=== PATIENT | male | born 1955 | race Caucasian/White ===

== ENCOUNTER 2025-07-23 07:23 | Outpatient (AMB) | payer MEDICARE, SELFPAY ==
--- NOTE | 2025-07-23 07:26 | A.OFFVIS_ITS ---
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 He used to have intermittent head tremors for atleast 15-20 years.He started noticing episodic left hand tremors in his left hand and now phong hands for atleast 1 year.The tremors are with action like writing or holding a tool .He has no no head tremors when he is focusing on something - like working in a computer or when he is upset.No family h/o tremors. He is not sure alcohol helps. He has had 1 concussion -25 years ago. No change in voice No depression or anxiety No difficulty using utensils , personal hygiene , shower. Gait- ok . He has chronic back pain with numbness and is scheduled for decompression surgery in Aug 2025 ( next month) SLeep- loud snoring, gasping arousals. No active dreams. [facility] Medical History (Updated 07/23/25 @ 14:17 by Kristen Celis MD) Hypersomnia Snoring Coarse tremors Acute postoperative pain of right shoulder Chronic right-sided back pain Hearing loss HTN (hypertension) Diverticulosis Abnormal colonoscopy Chronic neck pain High cholesterol Family History Father Heart attack Heart disease Mother Colon cancer Sciatica Daughter Crohn disease Social History Alcohol intake: former Patient Tobacco Use Status: Never used Tobacco Physical Exam Vital Signs: Last Vital Signs Pulse 74 07/23/25 07:30 BP 124/76 07/23/25 07:30 Pulse Ox 97 07/23/25 07:30 Oxygen Delivery Method Room Air 07/23/25 07:30 BMI result Body Mass Index 30.8 Const General: cooperative, healthy appearing, comfortable and no acute distress Nutritional Appearance: overweight Orientation/consciousness: patient oriented x3 Eyes Pupils: Equal, round and reactive pupils present Neuro Other: retrognathia Mallampatti grade 4 No no head tremors Phong mild postural tremors Hand writing- mild tremors , ? writers cramp mild left leg tremors General: patient oriented x3, gait normal, tone normal, moves all extremities and no focal motor deficits Cranial nerves: Yes Facial sensation intact/muscles of mastication intact, Yes Equal, round and reactive pupils present, Yes Bilaterally intact EOM present, Yes Nystagmus not present, Yes Normal facial strength present, Yes Midline tongue present and Yes Ability to bilaterally elevate shoulders present Cognition (Neuro): normal cognition Gait exam (Neuro): Normal gait present Motor exam (neuro): 5/5 motor strength present throughout and Normal motor muscle tone present throughout Deep tendon reflexes (DTR's): Right triceps reflex intensity grade: 1+, Left triceps reflex intensity grade: 1+, Rt Biceps (C5, C6): 1+, Left biceps reflex intensity grade: 1+, Right brachioradialis reflex intensity grade: 1+, Left brachioradialis reflex intensity grade: 1+, Right patellar reflex intensity grade: 1+ and Left patellar reflex intensity grade: 1+ Coordination: noxini-se-llkg test normal Assessment & Plan Assessment & Plan (1) Coarse tremors: Comment: ? essential tremors Code(s): G25.2 - Other specified forms of tremor Category: Medical (2) Snoring: Code(s): R06.83 - Snoring Category: Medical (3) Hypersomnia: Code(s): G47.10 - Hypersomnia, unspecified Category: Medical Plan OT to help with hand functioning will consider gabapentin or propranolol if tina tremors affect his ADLs Home sleep test to r/o sleep apnea. Orders: Orders OT Evaluation and Treatment Today G25.2 - Other specified forms of tremor RT home sleep study Today G47.10 - Hypersomnia, unspecified, R06.83 - Snoring Coding Level of Care Code New Pt Level 4 (30124) Complex EM visit Add On G2211 Diagnoses Coarse tremors G25.2 Snoring R06.83 Hypersomnia G47.10
[2025-07-23 07:30] VITALS: BP 124/76; PULSE 74; O2SAT 97; BMI 30.8
--- OUTSIDE RECORDS SUMMARY | 2025-07-23 15:04 | XMS_ITS | Data Portability ---
Author Organization [place] - [facility], Allergy Address [address] [place] [address] Assessment No assessment recorded. Plan of Treatment Reminders Order Date Submit Date Provider Last Modified By Organization Details Last Modified Time Details Appointments Establish ed 30 2025 10:00A M TJ Nielsen MD Not available Not available Not available Lab None recorded. Referral None recorded. Procedures None recorded. Surgeries None recorded. Imaging None recorded. Medication Orders None recorded. Patient TargetsNo targets recorded. Patient InstructionsNo instructions recorded. Reason for Referral None Reported. Results Created Date Observation Date Name Description Value Unit Range Abnormal Flag Note LastModifiedBy Organization Detail LastModifiedTime 05/27/20 25 audio gram No observ ation record ed. BARCODE Not Available 2024 15:18:35 Result Notes None recorded. Problems Name Problem SNOMED Code Status Onset Date Resolution Date Notes Provider Name and Address Organization Details Recorded Time Impacted cerumen of bilateral ears 9736801877326 108 Active 2024 TJ Nielsen MD [address] [place] [address], [place], [address], [facility] - [facility] 14:31:06 Sensorineur al hearing loss of bilateral ears 087174488 Active 2024 TJ Nielsen MD [address] [place] [address], [place], [address], [facility] 14:31:13 Bilateral tinnitus 0562676901150 Active 2024 TJ Nielsen MD [address] [place] [address], [place], [address], [place] - [facility] 14:31:20 Problem Notes None recorded. Procedures Surgical History Date Name Laterality Status Provider Name and Address Organization Details Recorded Time Comp Audio with Tymps - 56740 & 13071 completed SONAM VILLA 100 [facility],[address], [address], [place] - [facility] 05/27/2025 14:46:27 Cerumen removal with microscope bilateral completed TJ MAYER MD [address], [address], [facility] - [facility] 05/27/2025 14:31:31 Imaging Results None recorded. Procedure Notes None recorded. Medical Equipment None Reported. Medications Name Sig Start Date Stop Date Status Note LastModified by Organization Details LastModified Time atorvastatin 80 mg tablet TAKE 1 TABLET BY MOUTH EVERY DAY active Not Available Not Available No t Available tamsulosin 0.4 mg capsule TAKE 1 CAPSULE BY MOUTH EVERYDAY AT BEDTIME active Not Available Not Available No t Available amlodipine 10 mg tablet TAKE 1 TABLET BY MOUTH EVERY DAY active Not Available Not Available No t Available methylpredniso lone 4 mg tablets in a dose pack TAKE 6 TABLETS ON DAY 1 DIRECTED ON PACKAGE AND DECREASE BY 1 TAB EACH DAY FOR A TOTAL OF 6 DAYS active Not Available Not Available No t Available Vitals Date Recorded Body height Body mass index (BMI) Body weight Provider Name and Address Organization Details Last Updated DateTime 05/27/2025 175.26 cm 30.9 kg/m2 92784.81 g Brenda Salamanca [place] - [facility] 05/27/2025 13:58:53 Social History None recorded. Functional Status None recorded. Mental Status None recorded. Family History Nothing Reported. Medical History No medical history recorded. Past Encounters Encounter ID Performer Location Encounter Start Date Encounter Closed Date Diagnosis/Indication Diagnosis SNOMED-CT Code Diagnosis ICD10 Code Diagnosis IMO Codes Diagnosis Note [id number] TJ MAYER MD [facility] [address] [place] [address] 05/27/2025 13:37:26 05/27/2025 14:58:06 Impacted cerumen of bilateral ears [id number] 842998 H61.23 188162 Recurrent Cerumen Impactions : Ears were meticulous ly cleaned bilaterall y today with a curette and suction. The patient tolerated this well and will follow up for repeat debridemen t per routine. Sensorineu ral hearing loss of bilateral ears 069998098 H90.3 581777 Patient's audiogram shows bilateral severe sensorineu ral hearing loss with well maintained speech discrimina tion. There is enough hearing loss to affect day-to-day hearing performanc e. We discussed in detail the pros and cons of amplificat ion (hearing aids). Patient would like to learn more about this option so I have provided a copy of the audiogram, a list of [facility] hearing aid providers, and medical clearance for amplificat ion so the patient can pursue this at their convenien e. Patient is medically cleared for amplificat ion bilaterall y.He plans to go to [facility] for hearing aids Bilateral tinnitus 99316 12608 102 H93.13 212242 Ear exam was normal. Audiogram was reviewed. We discussed the associatio n between sensorineu ral hearing loss and tinnitus. We discussed masking for tinnitus. [id number] SONAM VILLA [facility] of [address] [address] 05/27/2025 14:46:14 05/28/2025 18:11:23 Sensorineural hearing loss of bilateral ears 426987054 H90.3 270227 Right Ear:Normal hearing through 750 Hz sloping to a severe SNHL with excellent speech discrimina tion.Type A tympanogra m.Left Ear:Normal hearing through 750 Hz sloping to a severe SNHL with excellent speech discrimina tion.Type A tympanogra m. Health Concerns Section Related Observation LastModified by Organization Detai ls LastModified Time None Recorded Concern Status LastModified by Organization Details LastModified Time None Recorded Advance Directives Directive None Recorded Payers Insurance Date Sequence Insurance Name Policy Number Policy Santiago Covered Member ID Santiago Member ID Guarantor Name 05/27/2025 2 AARP (MEDICARE SUPPLEMENT) Fabio Barakat [id number] Fabio Barakat 05/27/2025 1 [place] [id number] [place] Fabio Barakat [id number] Fabio Barakat Notes Date Note Type Note Provider Name and Address Organization Details Recorded Time 05/27/2025 text/html ROS as noted in the HPI He has a history of tinnitus AU. He has hearing aids he gets from [employer]. They are 20 years old. He has been noted to have cerumen impactions. TJ MAYER MD [address] [place] [address], [address], [facility] - [facility] 05/27/2025 14:58:47
--- OUTSIDE RECORDS SUMMARY | 2025-07-23 15:04 | XMS_ITS ---
Author Organization Unknown ENCOUNTERS Encounter Performer Location Date Diagnosis Diagnosis Status Outpatient ANIL REYES MD [address] [address] [id number] Outpatient Kim Lawrence [address] [address] [id number] Outpatient [address] [id number] [facility] CLAUDE Taylor [address] [address] [id number] [facility] [address] [address] [id number] [facility] Out[facility] [address] [id number] [facility] [address] [address] [id number] [facility] [address] [address] [id number] [facility] Out[facility] AFLREDO PENG [address] [id number] [facility] *Note: Encounters from your own facility or health system may be excluded. Allergies, Adverse Reactions, Alerts Allergen Type Severity Identification Date Medications Name Date Quantity Days Supplied GPI Number
--- OUTSIDE RECORDS SUMMARY | 2025-07-23 15:04 | XMS_ITS | Continuity of Care Document ---
Author Organization [place] - [facility], [facility] Address 100 [place] [address] Assessment No assessment recorded. Plan of Treatment [...] Recorded Time Impacted cerumen of bilateral ears 3442557267698 108 Active 2024 TJ Nielsen MD [address] [place], [place] [address], [address], [place] - [facility] 14:31:06 Sensorineur al hearing loss of bilateral ears 772551646 Active 2024 TJ Nielsen MD [address] [place] [address], [place], [address], [place] - [facility] 14:31:13 Bilateral tinnitus 2888439690298 Active 2024 TJ Nielsen MD [address] [place], [place] [address], [address], [place] - [facility] 14:31:20 Problem Notes None recorded. Procedures Surgical History Date Name Laterality Status Provider Name and Address Organization Details Recorded Time Comp Audio with Tymps - 53548 & 45127 completed SONAM VILLA 100 [facility],[place] [address], [place], [address], [place] - [facility] 05/27/2025 14:46:27 Cerumen removal with microscope bilateral completed TJ MAYER MD [address], [address], [place] - [facility] 05/27/2025 14:31:31 Imaging Results None recorded. Procedure [...] Updated DateTime 05/27/2025 175.26 cm 30.9 kg/m2 50573.81 g Brenda Salamanca [place] - [facility] 05/27/2025 13:58:53 Social History None recorded. Functional Status None recorded. Mental Status None recorded. Family History Nothing Reported. Medical History No medical history recorded. Past Encounters Encounter ID Performer Location Encounter Start Date Encounter Closed Date Diagnosis/Indication Diagnosis SNOMED-CT Code Diagnosis ICD10 Code Diagnosis IMO Codes Diagnosis Note [id number] TJ MAYER MD [facility] 100 [place] [address] 05/27/2025 13:37:26 05/27/2025 14:58:06 Impacted cerumen of bilateral ears 0261765882 511782 H61.23 302706 Recurrent Cerumen Impactions : Ears were meticulous ly cleaned bilaterall y today with a curette and suction. The patient tolerated this well and will follow up for repeat debridemen t per routine. Sensorineu ral hearing loss of bilateral ears 535243335 H90.3 291153 Patient's audiogram shows bilateral severe sensorineu ral hearing loss with well maintained speech discrimina tion. There is enough hearing loss to affect day-to-day hearing performanc e. We discussed in detail the pros and cons of amplificat ion (hearing aids). Patient would like to learn more about this option so I have provided a copy of the audiogram, a list of [facility] hearing aid providers, and medical clearance for amplificat ion so the patient can pursue this at their convenien e. Patient is medically cleared for amplificat ion bilaterall y.He plans to go to [facility] for hearing aids Bilateral tinnitus 44110 24053 102 H93.13 625785 Ear exam was normal. Audiogram was reviewed. We discussed the associatio n between sensorineu ral hearing loss and tinnitus. We discussed masking for tinnitus. [id number] SONAM VILLA [facility] of [address] [address] 05/27/2025 14:46:14 05/28/2025 18:11:23 Sensorineural hearing loss of bilateral ears 044221750 H90.3 [id number] Right Ear:Normal hearing through 750 Hz sloping to a severe SNHL with excellent speech discrimina tion.Type A tympanogra m.Left Ear:Normal hearing through 750 Hz sloping to a severe SNHL with excellent speech discrimina tion.Type A tympanogra m. Health Concerns Section Related Observation LastModified by Organization Detai ls LastModified Time None Recorded Concern Status LastModified by Organization Details LastModified Time None Recorded Payers Encounter Date Sequence Insurance Name Policy Number Policy Santiago Covered Member ID Santiago Member ID Guarantor Name 05/27/2025 2 AARP (MEDICARE SUPPLEMENT) Fabio Barakat [id number] Fabio Barakat 05/27/2025 1 [place] [employer] [place] Fabio Barakat [id number] Fabio Barakat Notes Date Note Type Note Provider Name and Address Organization Details Recorded Time 05/27/2025 text/html ROS as noted in the HPI He has a history of tinnitus AU. He has hearing aids he gets from [email or web address]. They are 20 years old. He has been noted to have cerumen impactions. TJ MAYER MD [address] [place] [address], [address], [facility] - [facility] 05/27/2025 14:58:47
--- OUTSIDE RECORDS SUMMARY | 2025-07-23 15:04 | XMS_ITS | Continuity of Care Document ---
Author Organization [place] - [facility], [facility] Address [address] [place] [address] Assessment No assessment recorded. Plan of Treatment [...] Recorded Time Impacted cerumen of bilateral ears 6254837003261 108 Active 2024 TJ Nielsen MD [address] [place], [place] [address], [address], [place] - [facility] 14:31:06 Sensorineur al hearing loss of bilateral ears 284017721 Active 2024 TJ Nielsen MD [address] [place] [address], [place], [address], [place] - [facility] 14:31:13 Bilateral tinnitus 5377153901842 Active 2024 TJ Nielsen MD [address] [place], [place] [address], [address], [place] - [facility] 14:31:20 Problem Notes None recorded. Procedures Surgical History Date Name Laterality Status Provider Name and Address Organization Details Recorded Time Comp Audio with Tymps - 67890 & 43121 completed SONAM VILLA 100 [facility],[place] [address], [place], [address], [place] - [facility] 05/27/2025 14:46:27 Cerumen removal with microscope bilateral completed TJ MAYER MD [address], [address], [place] - [facility] 05/27/2025 14:31:31 Imaging Results None recorded. Procedure [...] Updated DateTime 05/27/2025 175.26 cm 30.9 kg/m2 78907.81 g Brenda Salamanca [place] - [facility] 05/27/2025 13:58:53 Social History None recorded. Functional Status None recorded. Mental Status None recorded. Family History Nothing Reported. Medical History No medical history recorded. Past Encounters Encounter ID Performer Location Encounter Start Date Encounter Closed Date Diagnosis/Indication Diagnosis SNOMED-CT Code Diagnosis ICD10 Code Diagnosis IMO Codes Diagnosis Note [id number] TJ MAYER MD [facility] 100 [place] [address] 05/27/2025 13:37:26 05/27/2025 14:58:06 Impacted cerumen of bilateral ears [id number] 046177 H61.23 750859 Recurrent Cerumen Impactions : Ears were meticulous ly cleaned bilaterall y today with a curette and suction. The patient tolerated this well and will follow up for repeat debridemen t per routine. Sensorineu ral hearing loss of bilateral ears 183933181 H90.3 063292 Patient's audiogram shows bilateral severe sensorineu ral hearing loss with well maintained speech discrimina tion. There is enough hearing loss to affect day-to-day hearing performanc e. We discussed in detail the pros and cons of amplificat ion (hearing aids). Patient would like to learn more about this option so I have provided a copy of the audiogram, a list of [facility] hearing aid providers, and medical clearance for amplificat ion so the patient can pursue this at their convenien e. Patient is medically cleared for amplificat ion bilaterall y.He plans to go to [facility] for hearing aids Bilateral tinnitus 93330 25279 102 H93.13 027725 Ear exam was normal. Audiogram was reviewed. We discussed the associatio n between sensorineu ral hearing loss and tinnitus. We discussed masking for tinnitus. [id number] SONAM VILLA [facility] of [address] [address] 05/27/2025 14:46:14 05/28/2025 18:11:23 Sensorineural hearing loss of bilateral ears 485946860 H90.3 [id number] Right Ear:Normal hearing through 750 Hz sloping [...] 05/27/2025 2 AARP (MEDICARE SUPPLEMENT) Fabio Barakat [id number] Fabio Barakat 05/27/2025 1 [place]IC[place] [employer] SERVICES Fabio Barakat [id number] Fabio Barakat Notes Date Note Type Note Provider Name and Address Organization Details Recorded Time 05/27/2025 text/html ROS as noted in the HPI He has a history of tinnitus AU. He has hearing aids he gets from [employer]. They are 20 years old. He has been noted to have cerumen impactions. JT MAYER MD [address] [place] [address], [address], [facility] - [facility] 05/27/2025 14:58:47
== END 2025-07-23 08:21 | disposition home or self-care (01) ==
LOC: HO.HSMS 07:24
PROVIDERS: PCP Internal Medicine; Visit Provider Psychiatry & Neurology Neurology
DX: G25.2 Other specified forms of tremor (principal); R06.83 Snoring; G47.10 Hypersomnia, unspecified
CPT/HCPCS: 99204; G2211

== ENCOUNTER → 2025-07-23 07:23 | Outpatient (BNVA) | payer MEDICARE, SELFPAY | PROVIDERS: PCP Internal Medicine; Visit Provider Psychiatry & Neurology Neurology | DX: G25.2 Other specified forms of tremor (principal); R06.83 Snoring; G47.10 Hypersomnia, unspecified | CPT/HCPCS: 99202 ==